=== PATIENT | male | born 1970 | race African-American/Black ===

== ENCOUNTER 2016-03-22 22:43 | Emergency (ER) | payer MEDICARE, OTHER ==
[~2016-03-22] VITALS: Ht 175.3 cm; Wt 65.8 kg
[~2016-03-22 22:43] MED LIST: BENADRYL50 MG ORAL; CEPHALEXIN500 MG ORAL; COLACE100 MG ORAL; DILAUDID2 MG ORAL; FERROUS GLUCON324 M1 PO; FERROUS GLUCON324 MG PO; FLOMAX0.4 MG ORAL; HEPARIN1000 UNIT/ SQ; IBUPROFEN600 MG ORAL; INH300 MG ORAL; INTELENCE100 MG ORAL; ISENTRESS400 MG ORAL; LEVOFLOXAC500 MG/20 PO; LEVOFLOXACIN250 MG ORAL; MARINOL5 MG ORAL; MEPRON750 MG/51 ORAL; MIRALAX17 G2 ORAL; MOM30 ML ORAL; NICOTINE PATCH1 EAC5 TD; NORCO 5-325 TA1 EACH ORAL; NORVIR100 MG ORAL; PAXIL CR12.5 MG ORAL; PERMETHRIN60 GM TOPIC; PREZISTA400 MG ORAL; PROCRIT10000 UNIT SUBQ; PYRIDOXINE HCL50 MG ORAL; RANITIDINE HCL150 MG ORAL; TYLENOL650 MG/20. ORAL; ZOFRAN4 M1 ORAL
[2016-03-22 23:25] VITALS: BP 125/70
[2016-03-22] MEDS ORDERED: DiphenhydrAMINE 50mg/ml Inj IM ONE (23:30)
[2016-03-22] MEDS ORDERED: Solu-MEDROL 125mg Inj IM ONE (23:30)
[2016-03-22] MEDS ORDERED: BENADRYL25 MG ORAL (23:34)
[2016-03-22] MEDS ORDERED: PREDNISONE20 MG ORAL (23:34)
[2016-03-22 23:45] VITALS: BP 125/70
--- NOTE | 2016-03-23 01:20 | Emergency Room Report ---
History of Present Illness General Chief Complaint: Skin Rash/Abscess Source: Patient Present Illness HPI Patient presents with complaints of psoriasis on both of his hands and knees He reports that he was told by his physician to come and get a Benadryl shot Denies any headache or visual changes denies any fevers or chills patient has multiple medical conditions including psoriasis Denies any recent travel denies any change in medications Reports that his hands are very itchy And is not sure why flareup has occurred however he has had several times in the past Allergies: Coded Allergies: No Known Allergies (Verified , 04/07/14) Patient History Past Medical History: see triage record Pertinent Family History: none Reviewed Nursing Documentation: PMH: Agreed, PSxH: Agreed Nursing Documentation-PMH Past Medical History: No History, Except For Hx Asthma: Yes Hx Cancer: Yes - Colon Hx Gastrointestinal Problems: Yes - Colon Ca Hx Neurological Problems: Yes Hx Meningitis: Yes - SPINAL. Review of Systems All Other Systems: negative except mentioned in HPI Physical Exam Vital Signs Date Time Temp Pulse Resp B/P Pulse Ox O2 Delivery O2 Flow Rate FiO2 03/22/16 22:51 97.9 105 16 123/76 99 03/22/16 23:25 Room Air Sp02 EP Interpretation: reviewed, normal General Appearance: well appearing, no apparent distress Head: normocephalic, atraumatic Eyes: bilateral eye EOMI, bilateral eye PERRL ENT: hearing grossly normal, normal pharynx, TMs + canals normal, uvula midline Neck: full range of motion, supple, no meningismus, no bony tend Respiratory: lungs clear, normal breath sounds, no rhonchi, no respiratory distress, no retraction, no accessory muscle use Cardiovascular #1: normal peripheral pulses, regular rate, rhythm, no edema, no gallop, no JVD, no murmur Gastrointestinal: normal bowel sounds, non tender, soft, no mass, no organomegaly, non-distended, no guarding, no hernia, no pulsatile mass, no rebound Genitourinary: no CVA tenderness Musculoskeletal: other - Patient ambulate with a cane, has previous deficit Neurologic: oriented x3, responsive, stapler hand III-XII nml as tested, sensory intact Psychiatric: mood/affect normal Skin: other - Plan crisis involving both hands and knees no secondary cellulitis no fluctuance, Lymphatic: normal inspection, no adenopathy Medical Decision Making Diagnostic Impression: Primary Impression: dermatitis Additional Impression: Psoriasis ER Course Patient is complex with multiple past medical history Concern for compromised immune system At this time however no signs of any obvious sepsis or infectious pathology patient appears to have a flareup they underlying medical disease was treated here with IM injections and will have initial conservative outpatient trial Last Vital Signs Date Time Temp Pulse Resp B/P Pulse Ox O2 Delivery O2 Flow Rate FiO2 03/22/16 23:45 97.9 92 17 125/70 100 Room Air Status: improved Disposition: HOME, SELF-CARE Condition: Improved Scripts Prednisone* (PREDNISONE*) 20 Mg Tablet 20 MG ORAL BID for 6 Days, #12 TAB Prov: LINUS MILLIGAN D.O. 03/22/16 Diphenhydramine Hcl* (BENADRYL*) 25 Mg Capsule 25 MG ORAL Q6H Y for Itching, #30 CAP Prov: LINUS MILLIGAN D.O. 03/22/16 Referrals: BHARAT GARCIA (PCP) Patient Instructions: Rash, Psoriasis Additional Instructions: Patient is provided with the discharge instructions notified to follow up with primary doctor in the next 2-3 days otherwise return to the er with any worsening symptoms. LINUS MILLIGAN D.O. Mar 23, 2016 01:20
== END 2016-03-22 23:45 | disposition home or self-care (01) ==
LOC: EMR 23:05
DX: L40.9 Psoriasis, unspecified (principal); L30.9 Dermatitis, unspecified; J45.909 Unspecified asthma, uncomplicated; Z85.038 Personal history of other malignant neoplasm of large intestine; Z86.61 Personal history of infections of the central nervous system
CPT/HCPCS: 96372; 99284; J1200; J2930